=== PATIENT | male | born 1980 | race Caucasian/White ===

== ENCOUNTER 2020-11-14 09:36 | Emergency (ER) | payer SELFPAY ==
--- NOTE | 2020-11-14 11:44 | RAD REPORT ---
EXAM DESCRIPTION: Amy Mancini (2 Views)11/14/2020 10:50 am CLINICAL HISTORY: Cough COMPARISON: None FINDINGS: The lungs appear clear of acute infiltrate. The heart is normal size IMPRESSION: No acute abnormalities displayed
--- NOTE | 2020-11-14 11:46 | ER ---
Nurse's Notes [facility] Name: Artem Rodarte Age: 40 yrs Sex: Male : 1980 Arrival Date: 11/14/2020 Time: 09:37 Bed 8 Private MD: Diagnosis: Other chest pain-chest wall strain Presentation: 11/14 10:06 Chief complaint: Patient states: I either rip my muscle on my L chest area, or broke a ca1 rib on this L side. I pulled a bar 4 days ago. It started hurting since then it has progressed into stabbing pain inside. Reports SOB, and swelling on the area. Hurts to cough, sneeze, move, anything. Coronavirus screen: Client denies travel out of the [place] in the last 14 days. shortness of breath, Client presents with at least one sign or symptom that may indicate coronavirus-19. Standard/surgical mask placed on the client. Provider contacted for isolation considerations. Ebola Screen: Patient negative for fever greater than or equal to 101.5 degrees Fahrenheit, and additional compatible Ebola Virus Disease symptoms Patient denies exposure to infectious person. Patient denies travel to an Ebola-affected area in the 21 days before illness onset. No symptoms or risks identified at this time. Initial Sepsis Screen: Does the patient meet any 2 criteria? No. Patient's initial sepsis screen is negative. Does the patient have a suspected source of infection? No. Patient's initial sepsis screen is negative. Risk Assessment: Do you want to hurt yourself or someone else? Patient reports no desire to harm self or others. Onset of symptoms was November 10, 2020. 10:06 Method Of Arrival: Ambulatory ca1 10:06 Acuity: RYAN 3 ca1 Triage Assessment: 10:10 General: Appears in no apparent distress. uncomfortable, Behavior is cooperative, bp appropriate for age, anxious. Pain: Complains of pain in anterior aspect of left upper chest. EENT: No deficits noted. Neuro: No deficits noted. Cardiovascular: No deficits noted. Respiratory: Reports pain with movement Onset: The symptoms/episode began/occurred 5 days ago, the patient has moderate shortness of breath. GI: No signs and/or symptoms were reported involving the gastrointestinal system. : No signs and/or symptoms were reported regarding the genitourinary system. Derm: No signs and/or symptoms reported regarding the dermatologic system. Musculoskeletal: No deficits noted. Historical: - Allergies: 10:10 No Known Allergies; ca1 - Home Meds: 10:10 None [Active]; ca1 - PMHx: 10:10 None; ca1 - PSHx: 10:10 None; ca1 - Immunization history:: Flu vaccine is not up to date. - Social history:: Smoking status: Patient reports the use of cigarette tobacco products, smokes one pack cigarettes per day. Screenin:14 Abuse screen: Denies threats or abuse. Denies injuries from another. Nutritional tw2 screening: No deficits noted. Tuberculosis screening: No symptoms or risk factors identified. Fall Risk None identified. Assessment: 10:10 General: SEE TRIAGE NOTE. bp 11:00 Reassessment: No changes from previously documented assessment. Patient and/or family bp updated on plan of care and expected duration. Pain level reassessed. Patient is alert, oriented x 3, equal unlabored respirations, skin warm/dry/pink. Cardiovascular: Rhythm is sinus rhythm. Respiratory: Airway is patent Respiratory effort is even, unlabored, Breath sounds are clear bilaterally. 12:05 Reassessment: PT D/C HOME AMBULATORY, DX WITH MUSCULOSKELETAL PAIN. bp Vital Signs: 10:06 BP 132 / 90; Pulse 83; Resp 16 S; Temp 97.5(TE); Pulse Ox 98% on R/A; Weight 97.52 kg ca1 (R); Height 5 ft. 10 in. (177.80 cm) (R); Pain 2/10; 12:05 BP 104 / 53; Pulse 89; Resp 17; Temp 97.8; Pulse Ox 97% ; bp 10:06 Body Mass Index 30.85 (97.52 kg, 177.80 cm) ca1 ED Course: 09:37 Patient arrived in ED. am2 10:09 Triage completed. ca1 10:10 Arm band placed on right wrist. ca1 10:13 Magali Perry RN is Primary Nurse. tw2 10:14 Bed in low position. Call light in reach. hall monitor on. Pulse ox on. NIBP on. tw2 10:17 Buddy Moreira PA is PHCP. jr8 10:17 Miah Hagen MD is Attending Physician. jr8 10:43 XRAY Chest Pa And Lat (2 Views) In Process Unspecified. EDMS 12:05 No provider procedures requiring assistance completed. Patient did not have IV access bp during this emergency room visit. Administered Medications: No medications were administered Outcome: 11:46 Discharge ordered by MD. snow 12:05 Discharged to home ambulatory. bp 12:05 Condition: stable 12:05 Discharge instructions given to patient, Instructed on discharge instructions, follow up and referral plans. medication usage, Demonstrated understanding of instructions, follow-up care, medications, Prescriptions given X 1. 12:07 Patient left the ED. bp Signatures: Dispatcher [employer] EDSC Buddy Moreira PA PA jrMagali Jefferson, RN RN tw2 Mary Luevano 2 Jamie Sanchez, RN RN bp Ingrid Broussard RN RN ca1
--- NOTE | 2020-11-14 11:47 | EDPHYS ---
Physician Documentation [facility] Name: Artem Rodarte Age: 40 yrs Sex: Male : 1980 Arrival Date: 11/14/2020 Time: 09:37 Bed 8 Private MD: ED Physician Miah Hagen HPI: 11/14 11:01 This 40 yrs old Male presents to ER via Ambulatory with complaints of jr8 Breathing Difficulty, left pectoral pain/injury. 11:01 The patient has shortness of breath at rest. Onset: The symptoms/episode began/occurred jr8 gradually, 2 day(s) ago. Duration: The symptoms are continuous. The patient's shortness of breath is aggravated by coughing, walking. Associated signs and symptoms: Pertinent positives: chest pain. Severity of symptoms: At their worst the symptoms were moderate in the emergency department the symptoms are unchanged. The patient has not experienced similar symptoms in the past. The patient has not recently seen a physician. Patient was pulling bearings off and felt pop to left upper chest. Since then has had pain to left chest and shortness of breath. Historical: - Allergies: 10:10 No Known Allergies; ca1 - Home Meds: 10:10 None [Active]; ca1 - PMHx: 10:10 None; ca1 - PSHx: 10:10 None; ca1 - Immunization history:: Flu vaccine is not up to date. - Social history:: Smoking status: Patient reports the use of cigarette tobacco products, smokes one pack cigarettes per day. ROS: 11:01 Eyes: Negative for injury, pain, redness, and discharge, ENT: Negative for injury, jr8 pain, and discharge, Neck: Negative for injury, pain, and swelling, Abdomen/GI: Negative for abdominal pain, nausea, vomiting, diarrhea, and constipation, Back: Negative for injury and pain, MS/Extremity: Negative for injury and deformity, Skin: Negative for injury, rash, and discoloration, Neuro: Negative for headache, weakness, numbness, tingling, and seizure. 11:01 Cardiovascular: Positive for chest pain, Negative for edema, orthopnea, palpitations, paroxysmal nocturnal dyspnea. 11:01 Respiratory: Positive for shortness of breath. Exam: 11:01 Eyes: Pupils equal round and reactive to light, extra-ocular motions intact. Lids and jr8 lashes normal. Conjunctiva and sclera are non-icteric and not injected. Cornea within normal limits. Periorbital areas with no swelling, redness, or edema. ENT: Nares patent. No nasal discharge, no septal abnormalities noted. Tympanic membranes are normal and external auditory canals are clear. Oropharynx with no redness, swelling, or masses, exudates, or evidence of obstruction, uvula midline. Mucous membranes moist. Neck: Trachea midline, no thyromegaly or masses palpated, and no cervical lymphadenopathy. Supple, full range of motion without nuchal rigidity, or vertebral point tenderness. No Meningismus. Cardiovascular: Regular rate and rhythm with a normal S1 and S2. No gallops, murmurs, or rubs. Normal PMI, no JVD. No pulse deficits. Respiratory: Lungs have equal breath sounds bilaterally, clear to auscultation and percussion. No rales, rhonchi or wheezes noted. No increased work of breathing, no retractions or nasal flaring. Abdomen/GI: Soft, non-tender, with normal bowel sounds. No distension or tympany. No guarding or rebound. No evidence of tenderness throughout. Back: No spinal tenderness. No costovertebral tenderness. Full range of motion. Skin: Warm, dry with normal turgor. Normal color with no rashes, no lesions, and no evidence of cellulitis. MS/ Extremity: Pulses equal, no cyanosis. Neurovascular intact. Full, normal range of motion. Neuro: Awake and alert, GCS 15, oriented to person, place, time, and situation. Cranial nerves II-XII grossly intact. Motor strength 5/5 in all extremities. Sensory grossly intact. Cerebellar exam normal. Normal gait. 11:01 Chest/axilla: Inspection: normal, Palpation: tenderness, that is moderate, of the anterior aspect of left upper chest, that totally reproduces the patient's complaints. Vital Signs: 10:06 BP 132 / 90; Pulse 83; Resp 16 S; Temp 97.5(TE); Pulse Ox 98% on R/A; Weight 97.52 kg ca1 (R); Height 5 ft. 10 in. (177.80 cm) (R); Pain 2/10; 12:05 BP 104 / 53; Pulse 89; Resp 17; Temp 97.8; Pulse Ox 97% ; bp 10:06 Body Mass Index 30.85 (97.52 kg, 177.80 cm) ca1 MDM: 10:17 Patient medically screened. jr8 11:01 Data reviewed: vital signs, nurses notes, radiologic studies, plain films. Data jr8 interpreted: Pulse oximetry: on room air is 98 %. Interpretation: normal. Counseling: I had a detailed discussion with the patient and/or guardian regarding: the historical points, exam findings, and any diagnostic results supporting the discharge/admit diagnosis, radiology results, the need for outpatient follow up, a family practitioner, to return to the emergency department if symptoms worsen or persist or if there are any questions or concerns that arise at home. 11/14 10:17 Order name: XRAY Chest Pa And Lat (2 Views); Complete Time: 11:45 jr8 Administered Medications: No medications were administered Disposition: 18:47 Co-signature as Attending Physician, Miah Hagen MD I agree with the assessment and kdr plan of care. Disposition: 11/14/20 11:46 Discharged to Home. Impression: Other chest pain - chest wall strain. - Condition is Stable. - Discharge Instructions: Nonspecific Chest Pain, Chest Wall Pain. - Prescriptions for ketorolac 10 mg Oral tablet - take 1 tablet by ORAL route every 8 hours As needed not to exceed 30 mg in 24hrs; 15 tablet. - Medication Reconciliation Form, Thank You Letter, Antibiotic Education, Prescription Opioid Use, Work release form form. - Follow up: Private Physician; When: As needed; Reason: Recheck today's complaints, Continuance of care, Re-evaluation by your physician. - Problem is new. - Symptoms have improved. Signatures: Dispatcher [employer] EDND Miah Hagen MD MD [facility] Buddy Moreira PA PA jr8 Jamie Sanchez, DESTINY RN bp Ingrid Broussard RN RN ca1 Corrections: (The following items were deleted from the chart) 12:07 11:46 11/14/2020 11:46 Discharged to Home. Impression: Other chest pain - chest wall bp strain. Condition is Stable. Forms are Medication Reconciliation Form, Thank You Letter, Antibiotic Education, Prescription Opioid Use. Follow up: Private Physician; When: As needed; Reason: Recheck today's complaints, Continuance of care, Re-evaluation by your physician. Problem is new. Symptoms have improved. jr8
[2020-11-14 12:14] VITALS: BP 104/53; TEMP 97.8; O2SAT 97
== END 2020-11-14 12:07 | disposition home or self-care (01) ==
LOC: ER 09:36
DX: S29.011A Strain of muscle and tendon of front wall of thorax, initial encounter (principal); F17.210 Nicotine dependence, cigarettes, uncomplicated
CPT/HCPCS: 71046; 99284